=== PATIENT | female | born 1955 | race Caucasian/White ===

== ENCOUNTER 2019-04-24 09:58 | Emergency (ER) | payer OTHER, SELFPAY ==
[2019-04-24 09:58] VITALS: BP 146/78; PULSE 65; RESP 18; TEMP 36.5; O2SAT 97; BMI 41.1
--- NOTE | 2019-04-24 10:13 | DI.RAD.S_ITS ---
PROCEDURE: XR KNEE LT 3V INDICATIONS: walking , felt a pop , behind left knee TECHNIQUE: 3 views of the knee were acquired. COMPARISON: None. FINDINGS: Bones: No fractures or dislocations. No suspicious bony lesions. There is femorotibial compartment narrowing and intercondylar osteophytes. Soft tissues: No joint effusion. No suspicious soft tissue calcifications. IMPRESSION: Mild degenerative change. No acute radiographic findings. If pain persists, consider cross-sectional imaging with CT or MRI. Dictated by: Danna Alvarez M.D. on 04/24/2019 at 9:30 Approved by: Danna Alvarez M.D. on 04/24/2019 at 9:31
--- NOTE | 2019-04-24 12:02 | ED.LOWEXIN ---
HPI - Extremity Injury (Lower) <SYED RodriguezP - Last Filed: 04/24/19 22:53> General Chief Complaint: Extremity Injury, Lower Stated Complaint: Something popped in lt knee Time Seen by Provider: 04/24/19 10:58 Source: patient and family Mode of arrival: wheelchair Limitations: no limitations History of Present Illness HPI Narrative: This is a 63-year-old female, previous smoker, with history of left diaphragm paralysis, COPD, several musculoskeletal surgeries in back, shoulder, ankle presents with her in chief complaining of left posterior knee spontaneous popping sensation after she walked up the stairs. After this, reports difficulty bearing weight due to pain. She and her are visiting from [place] to visit family member in [place] and is planning to go back to [place] this coming . She denies traumatic injury to this knee or the previous injury. She reports pain aggravates with straightening and flexing the affected leg. She denies tingling, numbness, weakness to the affected leg. Related Data Allergies Allergy/AdvReac Type Severity Reaction Status Date / Time acetaminophen [From Percocet] Allergy Verified 04/24/19 10:10 aspirin [From Percodan] Allergy Verified 04/24/19 10:10 oxycodone [From Percodan] Allergy Verified 04/24/19 10:10 Review of Systems <DONNA Rodriguez - Last Filed: 04/24/19 22:53> Review of Systems General: Denies fever, chills, fatigue, malaise, sweats. HEENT: Denies sinus pain, ear pain, sore throat, difficulty swallowing, dizziness. Respiratory: Denies dyspnea, cough, wheezing, hemoptysis, sputum. Cardiovascular: Denies chest pain, palpitations, orthopnea, edema. Gastrointestinal: Denies nausea, vomiting, abdominal pain, diarrhea, constipation, melena. : Denies dysuria, frequency, incontinence, hematuria, urinary retention. Musculoskeletal: Reports left posterior knee pain. Denies weakness, bony pain. Skin: Denies rash, skin lesions, or other. Neurologic: Denies weakness, headache, numbness, change in speech, confusion, seizures, incoordination. Psychiatric: No concerning psychosocial issues. 12-point review of systems is negative except for those stated above. PFSH <DONNA Rodriguez - Last Filed: 04/24/19 22:53> Medical History COPD (chronic obstructive pulmonary disease) (Acute) Diaphragm paralysis (Acute) Surgical History History of ankle surgery (Chronic) History of shoulder surgery (Chronic) Previous back surgery (Chronic) Social History Smoking Status: Former smoker Social History Smoking Status: Former smoker Exam <DONNA Rodriguez - Last Filed: 04/24/19 22:53> Narrative Exam Narrative: GEN: Alert, oriented x 3, well appearing and nourished, and in no acute distress. Head: Normal cephalic, atraumatic. No scalp or temporal tenderness, palpable mass or rash. EYES: Pupils are equal, round, and reactive to light and accommodation. Extraocular muscles are intact bilaterally. There is no subconjunctival hemorrhage, exudate and sclera non-icteric. ENT: Bilateral auditory canals and tympanic membranes. Hearing grossly intact. Nose without bleeding, purulent discharge. Mucous membrane moist, no mucosal lesion. Throat without erythema, tonsillar hypertrophy or exudate. Uvula in midline, airway patent. Neck: Trachea in midline. No JVD, non-tender without lymphadenopathy. No masses or thyroid megaly. Supple, non-tender and meningeal signs. CARDIAC: Normal regular rate and rhythm without murmurs, gallops, or rubs. No chest wall tenderness. No peripheral edema, cyanosis or pallor. Capillary refill is less than 2 seconds. RESPIRATORY: Lungs are cleat to auscultate bilaterally. No cough, wheezes, rales, or rhonchi. No stridor, respiratory distress, increase work of breathing, or accessary muscle used. ABD: Abdomen soft, nontender and non-distended. No guarding or rebound tenderness to palpate. Bowel sounds are normal in all 4 quadrants. There is no palpable masses or organomegaly. EXT: L knee: Decreased active ROM due to pain. Passive ROM. No deformity, swelling, warmth noted. No bulge noted in patella. Postive Romel's test. Pain with anterior and posterior drawer test. Negative for decreased sensation. R Knee: Full painless ROM of all extremities with no loss of sensation, strength, effusion or edema. SKIN: Warm, dry, normal color for patient. No erythema, lesions or rash. BACK: Nontender without deformity or crepitance. No flank tenderness. NEUROLOGICAL: Alert and oriented to place, time and person. Sensation and motor function intact bilaterally. No facial droops, dysphasia. PSYCHIATRIC: Good judgement and reason, without hallucinations, abnormal affect or abnormal behaviors during the examination. Initial Vital Signs Initial Vital Signs: Vital Signs Temperature 97.7 F 04/24/19 09:58 Pulse Rate 65 04/24/19 09:58 Respiratory Rate 18 04/24/19 09:58 Blood Pressure 146/78 H 04/24/19 09:58 Pulse Oximetry 97 04/24/19 09:58 <Yeimy Lomeli MD - Last Filed: 04/26/19 07:44> Initial Vital Signs Initial Vital Signs: Vital Signs Temperature 97.7 F 04/24/19 09:58 Pulse Rate 65 04/24/19 09:58 Respiratory Rate 18 04/24/19 09:58 Blood Pressure 146/78 H 04/24/19 09:58 Pulse Oximetry 97 04/24/19 09:58 Course <DONNA Rodriguez - Last Filed: 04/24/19 22:53> Orders Ordered: ED Orders 04/24/19 10:13 XR knee LT 3V Stat Vital Signs - 8 hr 04/24/19 09:58 Temperature 97.7 F Pulse Rate 65 Respiratory Rate 18 Blood Pressure 146/78 H Pulse Oximetry 97 <Yeimy Lomeli MD - Last Filed: 04/26/19 07:44> Orders Ordered: ED Orders 04/24/19 10:13 XR knee LT 3V Stat Vital Signs - 8 hr 04/24/19 09:58 Temperature 97.7 F Pulse Rate 65 Respiratory Rate 18 Blood Pressure 146/78 H Pulse Oximetry 97 MDM - Extremity Injury (Lower) <DONNA Rodriguez - Last Filed: 04/24/19 22:53> Differential Diagnosis Likely other (knee sprain, knee ligament injury, knee meniscus injury) Medical Records Attestation: I reviewed the patient's medical records. Imaging Data XR-knee: Radiologist's impression: [address] [address] XRay Report Signed Patient: Loulou Oropeza [facility]#: [id number] : 4Acct:[id number] Age/Sex: 63 / FDate of Service: 04/24/19 Loc: ED Accession Number: [id number] Procedure: XR knee LT 3V Ordering Provider: Yeimy Lomeli MD PROCEDURE: XR KNEE LT 3V INDICATIONS: walking , felt a pop , behind left knee TECHNIQUE: 3 views of the knee were acquired. COMPARISON: None. FINDINGS: Bones: No fractures or dislocations. No suspicious bony lesions. There is femorotibial compartment narrowing and intercondylar osteophytes. Soft tissues: No joint effusion. No suspicious soft tissue calcifications. IMPRESSION: Mild degenerative change. No acute radiographic findings. If pain persists, consider cross-sectional imaging with CT or MRI. Dictated by: Danna Alvarez M.D. on 04/24/2019 at 9:30 Approved by: Danna Alvarez M.D. on 04/24/2019 at 9:31 [facility] Narrative Medical decision making narrative: This is a 63-year-old female who presents with her spouse chief complaining of left posterior knee popping sensation after walking up the stairs last night. She denies traumatic injuries to the affected knee. She reports knee pain and difficulty bearing weight or walking due to pain after this. She has been using her 's walker for mobilization. The patient and her are visitor from [place] and is planning to return to [place] on . Patient reports does not like to take ibuprofen due to the medication interactions but had taken [id number] Tylenol for pain. Patient was provided ice pack to placed in posterior left knee for comfort. Left knee three view x-ray was done and it shows mild degenerative changes without acute radiographic findings. There was no femorotibial compartment narrowing and intercondylar are osteophytes. Patient has been placed on knee immobilizer. Patient elected to use a walker over crutches and provided walker to go home with. Patient advised to follow up with primary care provider when she returns to [place] for re-evaluation, possible physical therapy, a refer her to Orthopedist, further imaging tests such as MRI. Patient advised to use RICE therapy at home for comfort and to decrease inflammation. I discussed in details with patient and in regards her requesting an MRI test today and informed that this could be arranged by her primary care physician in the near future possibly after a period of trying physical therapy and/or orthopedic clinic physician for further evaluation. The patient was provided with local [facility] health resources number if the patient has to follow up locally. Red flag symptoms such as severe knee pain, weakness, tingling, numbness, swelling for and re-evaluation and the patient agrees to the plan treatment. Discharge Plan Departure Patient Disposition: Home Clinical Impression: Posterior left knee pain Discharge Date/Time: 04/24/19 12:28 Interventions: ED Discharge Assessment Last Done: 04/24/19 12:27 Instructions: DI for Knee Pain Activity Restrictions/Additional Instructions: You have been diagnosed with [ posterior knee pain ]. What to do: *Take your medications as directed. You could continue to take [id number] Tylenol or acetaminophen as needed for pain since you prefer not to take NSAIDs. Please do not exceed 4000 mg per day. Please use RICE therapy such as rest, ice for next 2 days, compression/support with knee immobilization and elevation. *Follow up with your primary care provider in 2-3 days, call for an appointment. Let them know you were seen in the ED and that we asked you to be seen in follow up. You may need physical therapy, additional imaging if you're not feeling better which can be arranged by her primary care doctor. *Return to ED if you have any new, worsening, or concerning symptoms, such as [increasing pain, tingling numbness to toes, weakness to the extremity, chest pain, breathing difficulty, or any acute concerns]. Referrals: [facility] Resources [Outside]
--- NOTE | 2019-04-24 12:09 | ED_ITS ---
HPI - Extremity Injury (Lower) <SYED RodriguezP - Last Filed: 04/24/19 22:53> General Chief Complaint: Extremity Injury, Lower Stated Complaint: Something popped in lt knee Time Seen by Provider: 04/24/19 10:58 Source: patient and family Mode of arrival: wheelchair Limitations: no limitations History of Present Illness HPI Narrative: This is a 63-year-old female, previous smoker, with history of left diaphragm paralysis, COPD, several musculoskeletal surgeries in back, shoulder, ankle presents with her in chief complaining of left posterior knee spontaneous popping sensation after she walked up the stairs. After this, reports difficulty bearing weight due to pain. She and her are visiting from [place] to visit family member in [place] and is planning to go back to [place] this coming . She denies traumatic injury to this knee or the previous injury. She reports pain aggravates with straightening and flexing the affected leg. She denies tingling, numbness, weakness to the affected leg. Related Data Allergies Allergy/AdvReac Type Severity Reaction Status Date / Time acetaminophen [From Percocet] Allergy Verified 04/24/19 10:10 aspirin [From Percodan] Allergy Verified 04/24/19 10:10 oxycodone [From Percodan] Allergy Verified 04/24/19 10:10 Review of Systems <DONNA Rodriguez - Last Filed: 04/24/19 22:53> Review of Systems General: Denies fever, chills, fatigue, malaise, sweats. HEENT: Denies sinus pain, ear pain, sore throat, difficulty swallowing, dizziness. Respiratory: Denies dyspnea, cough, wheezing, hemoptysis, sputum. Cardiovascular: Denies chest pain, palpitations, orthopnea, edema. Gastrointestinal: Denies nausea, vomiting, abdominal pain, diarrhea, constipation, melena. : Denies dysuria, frequency, incontinence, hematuria, urinary retention. Musculoskeletal: Reports left posterior knee pain. Denies weakness, bony pain. Skin: Denies rash, skin lesions, or other. Neurologic: Denies weakness, headache, numbness, change in speech, confusion, seizures, incoordination. Psychiatric: No concerning psychosocial issues. 12-point review of systems is negative except for those stated above. PFSH <DONNA Rodriguez - Last Filed: 04/24/19 22:53> Medical History COPD (chronic obstructive pulmonary disease) (Acute) Diaphragm paralysis (Acute) Surgical History History of ankle surgery (Chronic) History of shoulder surgery (Chronic) Previous back surgery (Chronic) Social History Smoking Status: Former smoker Social History Smoking Status: Former smoker Exam <DONNA Rodriguez - Last Filed: 04/24/19 22:53> Narrative Exam Narrative: GEN: Alert, oriented x 3, well appearing and nourished, and in no acute distress. Head: Normal cephalic, atraumatic. No scalp or temporal tenderness, palpable mass or rash. EYES: Pupils are equal, round, and reactive to light and accommodation. Extraocular muscles are intact bilaterally. There is no subconjunctival hemorrhage, exudate and sclera non-icteric. ENT: Bilateral auditory canals and tympanic membranes. Hearing grossly intact. Nose without bleeding, purulent discharge. Mucous membrane moist, no mucosal lesion. Throat without erythema, tonsillar hypertrophy or exudate. Uvula in midline, airway patent. Neck: Trachea in midline. No JVD, non-tender without lymphadenopathy. No masses or thyroid megaly. Supple, non-tender and meningeal signs. CARDIAC: Normal regular rate and rhythm without murmurs, gallops, or rubs. No chest wall tenderness. No peripheral edema, cyanosis or pallor. Capillary refill is less than 2 seconds. RESPIRATORY: Lungs are cleat to auscultate bilaterally. No cough, wheezes, rales, or rhonchi. No stridor, respiratory distress, increase work of breathing, or accessary muscle used. ABD: Abdomen soft, nontender and non-distended. No guarding or rebound tenderness to palpate. Bowel sounds are normal in all 4 quadrants. There is no palpable masses or organomegaly. EXT: L knee: Decreased active ROM due to pain. Passive ROM. No deformity, swelling, warmth noted. No bulge noted in patella. Postive Romel's test. Pain with anterior and posterior drawer test. Negative for decreased sensation. R Knee: Full painless ROM of all extremities with no loss of sensation, strength, effusion or edema. SKIN: Warm, dry, normal color for patient. No erythema, lesions or rash. BACK: Nontender without deformity or crepitance. No flank tenderness. NEUROLOGICAL: Alert and oriented to place, time and person. Sensation and motor function intact bilaterally. No facial droops, dysphasia. PSYCHIATRIC: Good judgement and reason, without hallucinations, abnormal affect or abnormal behaviors during the examination. Initial Vital Signs Initial Vital Signs: Vital Signs Temperature 97.7 F 04/24/19 09:58 Pulse Rate 65 04/24/19 09:58 Respiratory Rate 18 04/24/19 09:58 Blood Pressure 146/78 H 04/24/19 09:58 Pulse Oximetry 97 04/24/19 09:58 <Yeimy Lomeli MD - Last Filed: 04/26/19 07:44> Initial Vital Signs Initial Vital Signs: Vital Signs Temperature 97.7 F 04/24/19 09:58 Pulse Rate 65 04/24/19 09:58 Respiratory Rate 18 04/24/19 09:58 Blood Pressure 146/78 H 04/24/19 09:58 Pulse Oximetry 97 04/24/19 09:58 Course <DONNA Rodriguez - Last Filed: 04/24/19 22:53> Orders Ordered: ED Orders 04/24/19 10:13 XR knee LT 3V Stat Vital Signs - 8 hr 04/24/19 09:58 Temperature 97.7 F Pulse Rate 65 Respiratory Rate 18 Blood Pressure 146/78 H Pulse Oximetry 97 <Yeimy Lomeli MD - Last Filed: 04/26/19 07:44> Orders Ordered: ED Orders 04/24/19 10:13 XR knee LT 3V Stat Vital Signs - 8 hr 04/24/19 09:58 Temperature 97.7 F Pulse Rate 65 Respiratory Rate 18 Blood Pressure 146/78 H Pulse Oximetry 97 MDM - Extremity Injury (Lower) <DONNA Rodriguez - Last Filed: 04/24/19 22:53> Differential Diagnosis Likely other (knee sprain, knee ligament injury, knee meniscus injury) Medical Records Attestation: I reviewed the patient's medical records. Imaging Data XR-knee: Radiologist's impression: [address] [address] XRay Report Signed Patient: Loulou Oropeza [facility]#: [id number] : 4Acct:[id number] Age/Sex: 63 / FDate of Service: 04/24/19 Loc: ED Accession Number: [id number] Procedure: XR knee LT 3V Ordering Provider: Yeimy Lomeli MD PROCEDURE: XR KNEE LT 3V INDICATIONS: walking , felt a pop , behind left knee TECHNIQUE: 3 views of the knee were acquired. COMPARISON: None. FINDINGS: Bones: No fractures or dislocations. No suspicious bony lesions. There is femorotibial compartment narrowing and intercondylar osteophytes. Soft tissues: No joint effusion. No suspicious soft tissue calcifications. IMPRESSION: Mild degenerative change. No acute radiographic findings. If pain persists, consider cross-sectional imaging with CT or MRI. Dictated by: Danna Alvarez M.D. on 04/24/2019 at 9:30 Approved by: Danna Alvarez M.D. on 04/24/2019 at 9:31 [facility] Narrative Medical decision making narrative: This is a 63-year-old female who presents with her spouse chief complaining of left posterior knee popping sensation after walking up the stairs last night. She denies traumatic injuries to the affected knee. She reports knee pain and difficulty bearing weight or walking due to pain after this. She has been using her 's walker for mobilization. The patient and her are visitor from [place] and is planning to return to [place] on . Patient reports does not like to take ibuprofen due to the medication interactions but had taken [id number] Tylenol for pain. Patient was provided ice pack to placed in posterior left knee for comfort. Left knee three view x-ray was done and it shows mild degenerative changes without acute radiographic findings. There was no femorotibial compartment narrowing and intercondylar are osteophytes. Patient has been placed on knee immobilizer. Patient elected to use a walker over crutches and provided walker to go home with. Patient advised to follow up with primary care provider when she returns to [place] for re-evaluation, possible physical therapy, a refer her to Orthopedist, further imaging tests such as MRI. Patient advised to use RICE therapy at home for comfort and to decrease inflammation. I discussed in details with patient and in regards her requesting an MRI test today and informed that this could be arranged by her primary care physician in the near future possibly after a period of trying physical therapy and/or orthopedic clinic physician for further evaluation. The patient was provided with local [facility] health resources number if the patient has to follow up locally. Red flag symptoms such as severe knee pain, weakness, tingling, numbness, swelling for and re-evaluation and the patient agrees to the plan treatment. Discharge Plan Departure Patient Disposition: Home Clinical Impression: Posterior left knee pain Discharge Date/Time: 04/24/19 12:28 Interventions: ED Discharge Assessment Last Done: 04/24/19 12:27 Instructions: DI for Knee Pain Activity Restrictions/Additional Instructions: You have been diagnosed with [ posterior knee pain ]. What to do: *Take your medications as directed. You could continue to take ikib-jzy-oqfvduh Tylenol or acetaminophen as needed for pain since you prefer not to take NSAIDs. Please do not exceed 4000 mg per day. Please use RICE therapy such as rest, ice for next 2 days, compression/support with knee immobilization and elevation. *Follow up with your primary care provider in 2-3 days, call for an appointment. Let them know you were seen in the ED and that we asked you to be seen in follow up. You may need physical therapy, additional imaging if you're not feeling better which can be arranged by her primary care doctor. *Return to ED if you have any new, worsening, or concerning symptoms, such as [increasing pain, tingling numbness to toes, weakness to the extremity, chest pain, breathing difficulty, or any acute concerns]. Referrals: [facility] Resources [Outside]
[2019-04-24 12:19] VITALS: BP 119/75; PULSE 63; RESP 16; O2SAT 96
== END 2019-04-24 12:28 | disposition home or self-care (01) ==
PROVIDERS: Emergency Provider Nurse Practitioner Family
DX: M25.562 Pain in left knee (principal); Y93.01 Activity, walking, marching and hiking
CPT/HCPCS: 73562; 99283